=== PATIENT | female | born 1930 | race Hispanic/Latino ===

== ENCOUNTER 2019-02-03 23:56 | Emergency (ER) | payer MEDICARE ==
[~2019-02-03] VITALS: Ht 157.5 cm; Wt 62.6 kg
[~2019-02-03 23:56] MED LIST: AMLODIPINE BESYL5 MG PO; ATORVASTATIN CA40 MG PO; GLIPIZIDE10 MG PO; LEVOTHYROXINE25 MCG PO; LISINOPRIL40 MG PO; METFORMIN HCL500 MG PO
[2019-02-04] MEDS ORDERED: SODIUM CHLORIDE 0.9% 500ML 500 ML IV STA (00:17)
[2019-02-04] MEDS ORDERED: ONDANSETRON HCL INJ 2MG/ML 2ML 2 MG/ML VIAL IV ONE (00:30)
[2019-02-04] MEDS ORDERED: FAMOTIDINE 20 MG/2 ML VIAL IV ONE (00:30)
[2019-02-04] MEDS ORDERED: DIATRIZOATE MEGL/DIATRIZOA SOD 30 ML BTL PO ONE (00:31)
[2019-02-04] MEDS ORDERED: ASPIRIN 81 MG CHEW TAB PO ONE (01:15)
[2019-02-04 01:19] LABS: BASOPHILS # (AUTO) 0.1 (0.0-0.1); BASOPHILS % 0.7 % (0.0-1.0); EOSINOPHILS # (AUTO) 0.1 (0.0-0.4); HEMATOCRIT 36.7 % (34.2-44.1); HEMOGLOBIN 12.3 g/dL (12.0-16.0); MEAN CORPUSCULAR HEMOGLOBIN 28.9 pg (28-32); MEAN CORPUSCULAR HGB CONC 33.5 g/dL (31-35); MEAN CORPUSCULAR VOLUME 86.4 fL (81-99); MONOCYTES # (AUTO) 0.7 (0.2-0.8); MONOCYTES % 10.2 % (4.4-11.3); NEUTROPHILS # (AUTO) 4.1 (2.1-6.9); NEUTROPHILS % 58.8 % (38.7-80.0); PLATELET COUNT 242 x10e3/uL (140-360); RED BLOOD COUNT 4.25 x10e6/uL (3.6-5.1); RED CELL DISTRIBUTION WIDTH 15.9 % (11.7-14.4)
[2019-02-04 01:24] LABS: BILIRUBIN,URINE NEGATIVE (NEGATIVE); CLARITY,URINE CLEAR (CLEAR); COLOR,URINE YELLOW (YELLOW); KETONES,URINE NEGATIVE (NEGATIVE); LEUKOCYTE ESTERASE ,URINE MODERATE (NEGATIVE); NITRITE,URINE NEGATIVE (NEGATIVE); PROTEIN,URINE DIPSTICK NEGATIVE (NEGATIVE); URINE UROBILINOGEN 0.2 mg/dL (0.2 - 1)
[2019-02-04 01:33] LABS: ALBUMIN 3.9 g/dL (3.5-5.0); ALBUMIN/GLOBULIN RATIO 1.2 (0.8-2.0); ANION GAP 11.8 mmol/L (8-16); CALCIUM 9.8 mg/dL (8.4-10.2); CREATININE, SERUM 1.04 mg/dL (0.57-1.11); POTASSIUM 3.8 mmol/L (3.5-5.1)
[2019-02-04 01:34] LABS: CREATINE KINASE 142 IU/L (29-168)
[2019-02-04 01:44] LABS: BACTERIA,URINE FEW /HPF; EPITHELIAL CELLS,URINE FEW /LPF; WBC,URINE (MAN) 21-50 /HPF (0-5)
[2019-02-04] MEDS ORDERED: CEFTRIAXONE SOD 1 GM VIAL IV ONE (02:00)
--- NOTE | 2019-02-04 04:05 | Diagnostic Imaging Report ---
EXAM: CT Abdomen and Pelvis WITH intravenous and oral contrast INDICATION: Right lower quadrant pain COMPARISON: None. TECHNIQUE: Abdomen and pelvis were scanned utilizing a multidetector helical scanner from the lung base to the pubic symphysis after administration of IV contrast. Coronal and sagittal reformations were obtained. Routine protocol was performed. Scan was performed when during portal venous phase. IV CONTRAST: 100 mL of Isovue 370 ORAL CONTRAST: Gastroview COMPLICATIONS: None RADIATION DOSE: Total DLP: 317 mGy*cm Estimated effective dose: (DLP x 0.015 x size factor) mSv CTDIvol has been reviewed. It is below the limits set by the Radiation Protocol Committee (RPC). Dose modulation, iterative reconstruction, and/or weight based adjustment of the mA/kV was utilized to reduce the radiation dose to as low as reasonably achievable. FINDINGS: LINES and TUBES: None. LOWER THORAX: Unremarkable HEPATOBILIARY: No focal hepatic lesions. No biliary ductal dilation. GALLBLADDER: A gallstone at the gallbladder neck. No wall thickening. SPLEEN: No splenomegaly. PANCREAS: No focal masses or ductal dilatation. ADRENALS: No adrenal nodules KIDNEYS/URETERS: Kidneys enhance symmetrically. No hydronephrosis. No cystic or solid mass lesions. No stones. GI TRACT: No abnormal distention, wall thickening, or evidence of bowel obstruction. Small bowel loops are displaced leftward and inferiorly due to mass effect from the right pelvic mass. Appendix is not clearly identified. There is however no fat stranding or adenopathy in the right lower quadrant to suggest appendicitis. PELVIC ORGANS/BLADDER: A 16 x 11 x 18 cm slightly complex cystic structure arises within the right pelvis and extends into the mid abdominal cavity. There are a few septations and calcifications along the inferomedial aspect of the cyst. Calcific uterine atrophy. LYMPH NODES: No lymphadenopathy. VESSELS: Vascular calcifications. PERITONEUM / RETROPERITONEUM: No free air or fluid. BONES: Low bone mineral density. Mild degenerative changes in the spine hips and pelvis. SOFT TISSUES: Unremarkable. IMPRESSION: 1. 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 Recommend surgical/gynecologic consultation. 2. Cholelithiasis without evidence of cholecystitis. Signed by: Ilan May DO on 02/04/2019 4:01 AM
[2019-02-04] MEDS ORDERED: SODIUM CHLORIDE 0.9% 50ML 50 ML ONE (06:55)
[2019-02-04] MEDS ORDERED: IOPAMIDOL 370 MG/ML 200 ML INFUS..BTL INJ ONE (06:56)
== END 2019-02-04 04:48 | disposition home or self-care (01) ==
LOC: ER 23:56
DX: R10.31 Right lower quadrant pain (principal); R42 Dizziness and giddiness; R11.0 Nausea; N30.90 Cystitis, unspecified without hematuria; N83.201 Unspecified ovarian cyst, right side
CPT/HCPCS: 36415; 74177; 80053; 81001; 82150; 82550; 82553; 83690; 84484; 85025; 93005; 99284; J0696; J2405; J7040; Q9967